=== PATIENT | female | born 1980 | race Caucasian/White ===

== ENCOUNTER 2023-04-05 01:05 | Inpatient (IN) | payer SELFPAY ==
--- NOTE | 2023-04-05 01:22 | ED ---
Chest Pain HPI - General Chief Complaint: Chest Pain Stated Complaint: End STEMI Time Seen by Provider: 04/05/23 01:11 Source: EMS Mode of arrival: EMS Limitations: no limitations - History of Present Illness Initial Comments: This patient is a 42-year-old woman with history of diabetes, currently smoking half pack of cigars per day, recent cold infection who went to [facility] this evening because she had been experiencing substernal chest pain since shortly after waking approximate 10 AM. The patient was found to have elevated troponin at 0.18. Patient's blood sugar is in the 330s there. She was transferred here to have further cardiology evaluation and treatment. The patient reported to have received aspirin, nitrates, heparin. MD Complaint: chest pain -: hour(s) (15) Onset: during rest Pain Location: substernal Pain Radiation: LUE Severity: moderate Quality: aching Consistency: constant Improves With: nothing Worsens With: nothing Anginal Symptoms: nausea Treatments Prior to Arrival: aspirin, nitroglycerin, oxygen, other - Related Data On Oral Contraceptives: No Home Medications Medication Instructions Recorded Confirmed Albuterol Inhaler [Ventolin Hfa 2 puff INHALATION RT-Q4H PRN 04/05/23 04/05/23 Inhaler] Levothyroxine Sodium [Synthroid] 75 mcg PO DAILY 04/05/23 04/05/23 glipiZIDE 5 mg PO DAILY 04/05/23 04/05/23 lisinopriL [Zestril] 10 mg PO DAILY 04/05/23 04/05/23 Previous Rx's Medication Instructions Recorded Aspirin 81 mg PO DAILY #30 tab 04/06/23 Atorvastatin [Lipitor] 40 mg PO HS #30 tab 04/06/23 Insulin Detemir (Levemir) [Levemir] 5 unit SQ HS #10 mgofpheneq 04/06/23 Isosorbide Mononitrate ER [Imdur] 30 mg PO DAILY #30 tab 04/06/23 Metoprolol Tartrate [Lopressor] 25 mg PO BID #60 tab 04/06/23 Nicotine 21Mg/24Hr Patch [Habitrol] 1 patch TRANSDERM DAILY #5 patch 04/06/23 Allergies Allergy/AdvReac Type Severity Reaction Status Date / Time No Known Allergies Allergy Verified 04/05/23 09:22 Review of Systems ROS Statement: Those systems with pertinent positive or pertinent negative responses have been documented in the HPI. ROS Other: All systems not noted in ROS Statement are negative. Constitutional: Denies: fever, chills Respiratory: Denies: cough, dyspnea Cardiovascular: Reports: chest pain. Denies: palpitations, edema, syncope Gastrointestinal: Reports: nausea. Denies: abdominal pain, vomiting, diarrhea Genitourinary: Denies: dysuria, hematuria Musculoskeletal: Denies: back pain Skin: Denies: rash Neurological: Denies: headache, weakness, numbness EKG Findings - EKG Results: EKG: interpreted by EMIR, sinus rhythm (Rate 76 bpm), normal axis, normal QRS, normal ST/T, no acute changes Past Medical History Past Medical History: Asthma, Diabetes Mellitus, Hypertension, Thyroid Disorder Past Surgical History: No Surgical Hx Reported Past Psychological History: No Psychological Hx Reported Smoking Status: Current every day smoker Past Alcohol Use History: Occasional Past Drug Use History: Marijuana General Exam Limitations: no limitations General appearance: alert, in no apparent distress Head exam: Present: atraumatic, normocephalic Eye exam: Present: normal appearance. Absent: scleral icterus, conjunctival injection ENT exam: Present: normal oropharynx Neck exam: Present: normal inspection Respiratory exam: Present: normal lung sounds bilaterally. Absent: respiratory distress, wheezes, rales, rhonchi, stridor Cardiovascular Exam: Present: regular rate, normal rhythm, normal heart sounds. Absent: systolic murmur, diastolic murmur, rubs, gallop GI/Abdominal exam: Present: soft. Absent: distended, tenderness, guarding, rebound, rigid, mass Extremities exam: Present: normal inspection, normal capillary refill. Absent: pedal edema, calf tenderness Back exam: Present: normal inspection. Absent: CVA tenderness (R), CVA tenderness (L) Neurological exam: Present: alert Skin exam: Present: warm, dry, intact, normal color. Absent: rash Course Vital Signs 04/05/23 04/05/23 04/05/23 01:06 02:00 03:00 Temperature 98.0 F Pulse Rate 79 73 65 Pulse Rate [ Photographic Double ] Respiratory 18 17 20 Rate Blood Pressure 143/88 138/74 143/68 Blood Pressure [Left Arm Sitting] O2 Sat by Pulse 96 97 96 Oximetry 04/05/23 04/05/23 04/05/23 04:00 05:00 06:00 Temperature Pulse Rate 60 73 65 Pulse Rate [ Photographic Double ] Respiratory 18 20 20 Rate Blood Pressure 138/90 131/72 138/80 Blood Pressure [Left Arm Sitting] O2 Sat by Pulse 96 96 94 L Oximetry 04/05/23 04/05/23 09:00 11:22 Temperature Pulse Rate 72 Pulse Rate [ 80 Photographic Double ] Respiratory 17 16 Rate Blood Pressure 140/78 Blood Pressure 134/74 [Left Arm Sitting] O2 Sat by Pulse 97 98 Oximetry Chest Pain MDM - MDM This patient is 42-year-old woman who is transferred here from outside hospital to have further cardiology treatment for N STEMI. The patient stable on arrival heparin continued the patient is discussed with admitting physician, admitting orders written. Was pt. sent in by a medical professional or institution (MARIAM Jackson, CROSSING TENDER, urgent care, hospital, or intermediate...) When possible be specific @ -Yesterday patient is transferred from outside hospital Did you speak to anyone other than the patient for history (EMS, parent, family, police, friend...)? What history was obtained from this source @ -[Case discussed with the transferring physician Did you review nursing and triage notes (agree or disagree)? Why? @ -[I reviewed and agree with nursing and triage notes] Were old charts reviewed (outside hosp., previous admission, EMS record, old EKG, old radiological studies, urgent care reports/EKG's, intermediate records)? Report findings @ -[The transfer charts charts were reviewed] Differential Diagnosis (chest pain, altered mental status, abdominal pain women, abdominal pain men, vaginal bleeding, weakness, fever, dyspnea, syncope, headache, dizziness, GI bleed, back pain, seizure, CVA, palpatations, mental health, musculoskeletal)? @ -[Differential Chest Pain: Stable Angina, Unstable Angina, STEMI, NSTEMI Aortic Dissection, Pneumothorax, Musculoskeletal, Esophageal Spasm GERD, Cholecystitis, Pancreatitis, Zoster, this is not meant to be an all-inclusive list. EKG interpreted by me (3pts min.). @ -[Reviewed outside ECG X-rays interpreted by me (1pt min.). @ -[None done] CT interpreted by me (1pt min.). @ -[None done] U/S interpreted by me (1pt. min.). @ -[None done] What testing was considered but not performed or refused? (CT, X-rays, U/S, labs)? Why? @ -[None] What meds were considered but not given or refused? Why? @ -[None] Did you discuss the management of the patient with other professionals (professionals i.e. , PA, CROSSING TENDER, lab, RT, psych nurse, social organization professor, tamale machine feeder, teacher, county records management officer, case folder)? Give summary @ -As above discussed with admitting physician Was smoking cessation discussed for >3mins.? @ -[No] Was critical care preformed (if so, how long)? @ -[No] Were there social determinants of health that impacted care today? How? (Homelessness, low income, unemployed, alcoholism, drug addiction, transportation, low edu. Level, literacy, decrease access to med. care, fpc, rehab)? @ -[No] Was there de-escalation of care discussed even if they declined (Discuss DNR or withdrawal of care, Hospice)? DNR status @ -[No] What co-morbidities impacted this encounter? (DM, HTN, Smoking, COPD, CAD, Cancer, CVA, ARF, Chemo, Hep., AIDS, mental health diagnosis, sleep apnea, morbid obesity)? @ -[None] Was patient admitted / discharged? Hospital course, mention meds given and route, prescriptions, significant lab abnormalities, going to OR and other pertinent info. @ -[As above Undiagnosed new problem with uncertain prognosis? @ -[No] Drug Therapy requiring intensive monitoring for toxicity (Heparin, Nitro, Insulin, Cardizem)? @ -[Heparin is continued Were any procedures done? @ -[No] Diagnosis/symptom? @ -[NSTEMI Acute, or Chronic, or Acute on Chronic? @ -[Acute Uncomplicated (without systemic symptoms) or Complicated (systemic symptoms)? @ -Uncomplicated Side effects of treatment? @ -[No] Exacerbation, Progression, or Severe Exacerbation? @ -[No] Poses a threat to life or bodily function? How? (Chest pain, [place], [place], pneumonia, PE, COPD, DKA, ARF, appy, cholecystitis, CVA, Diverticulitis, Homicidal, Suicidal, threat to staff... and all critical care pts) @ -[Yes Disposition Clinical Impression: Acute non-ST elevation myocardial infarction (NSTEMI), Uncontrolled diabetes mellitus Disposition: ADMITTED IP TO THIS HOSP Condition: Fair Is patient prescribed a controlled substance at d/c from ED?: No
[2023-04-05] MEDS ORDERED: NITROGLYCERIN SL TABS 0.4 MG TAB SUBLINGUAL PRN ×2 (01:30→09:17)
[2023-04-05] MEDS ORDERED: HEPARIN SOD,PORK IN 0.45% NACL 25,000 UNIT in 0.45% NACL 1 250ML.BAG IV SCH (01:30)
[2023-04-05] MEDS ORDERED: MORPHINE SULFATE 4 MG/ML SYRINGE IV STA (01:34)
[2023-04-05] MEDS: SODIUM CHLORIDE 0.9% 1,000 ML IV SCH ×3 (01:59→23:48)
[2023-04-05] MEDS ORDERED: NITROGLYCERIN OINT 1 INCH/GM PACKET TOPICAL SCH (06:00)
--- NOTE | 2023-04-05 07:14 | P.HPIM ---
History of Present Illness This is a pleasant 42 years old female with past medical history of hypertension, recently diagnosed covid Patient presented to the hospital with left-sided chest pain at [facility] and then transferred to this facility. Her pain is happened over one day about 7/10 on the left side nonradiating Described by the patient as squeezing but increased with deep breathing and feel like sharp. No relieving factors. She has some dyspnea and coughing with no phlegm. No change in urine or bowel habits. She has mild headache with no dizziness or weakness or numbness. Half-pack per day and she was counseled to quit and she agrees to the nicotine patch. No alcohol or illicit drugs. Review of Systems Review of systems CONSTITUTIONAL: No fever, no malaise, no fatigue. HEENT: No recent visual problems or hearing problems. Denied any sore throat. CARDIOVASCULAR: No orthopnea, PND, no palpitations, no syncope. PULMONARY: No shortness of breath, no cough, no hemoptysis. GASTROINTESTINAL: No diarrhea, no nausea, no vomiting, no abdominal pain. Normoactive bowel sounds. NEUROLOGICAL: No headaches, no weakness, no numbness. HEMATOLOGICAL: Denies any bleeding or petechiae. GENITOURINARY: Denies any burning micturition, frequency, or urgency. MUSCULOSKELETAL/RHEUMATOLOGICAL: Denies any joint pain, swelling, or any muscle pain. ENDOCRINE: Denies any polyuria or polydipsia. Past Medical History Past Medical History: Asthma, Diabetes Mellitus, Hypertension, Thyroid Disorder Past Surgical History: No Surgical Hx Reported Past Psychological History: No Psychological Hx Reported Smoking Status: Current every day smoker Past Alcohol Use History: Occasional Past Drug Use History: Marijuana Medications and Allergies Allergies Allergy/AdvReac Type Severity Reaction Status Date / Time No Known Allergies Allergy Verified 04/05/23 01:09 Physical Exam Vitals: Vital Signs Temp Pulse Resp BP Pulse Ox 04/05/23 06:00 65 20 138/80 94 L 04/05/23 05:00 73 20 131/72 96 04/05/23 04:00 60 18 138/90 96 04/05/23 03:00 65 20 143/68 96 04/05/23 02:00 73 17 138/74 97 04/05/23 01:06 98.0 F 79 18 143/88 96 Intake and Output 04/04/23 04/05/23 04/05/23 22:59 06:59 14:59 Other: Weight 108.862 kg -GENERAL: The patient is alert and oriented x3, not in any acute distress. Obese HEENT: Pupils are round and equally reacting to light. EOMI. No scleral icterus. No conjunctival pallor. Normocephalic, atraumatic. No pharyngeal erythema. No thyromegaly. CARDIOVASCULAR: S1 and S2 present. No murmurs, rubs, or gallops. PULMONARY: Chest is clear to auscultation, no wheezing , no crackles. ABDOMEN: Soft, nontender, nondistended, normoactive bowel sounds. No palpable organomegaly. MUSCULOSKELETAL: No joint swelling or deformity. EXTREMITIES: No cyanosis, clubbing, or pedal edema. NEUROLOGICAL: Gross neurological examination did not reveal any focal deficits. SKIN: No rashes. no petechiae. Results Labs: Abnormal Lab Results - Last 24 Hours (Table) 04/05/23 Range/Units 02:09 Troponin I 0.178 H* (0.000-0.034) ng/mL Assessment and Plan Assessment: Possible non-STEMI with chest pain and elevated troponin hyperglycemia and possible diabetes mellitus Nicotine dependence Obesity with BMI of 41.2 recently diagnosed covid with no pneumonia or hypoxia Plan: Continue with heparin drip continue with aspirin Check echocardiogram Cardiology consult Labs and medication were reviewed.. Continue same treatment. Continue with symptomatic treatment. Resume home medication. Monitor labs and vitals. DVT and GI prophylaxis. Further recommendations as per clinical course of the patient DVT prophylaxis: heparin GI Prophylaxis: Pepcid Prognosis is guarded
[2023-04-05] MEDS ORDERED: NICOTINE 21MG/24HR PATCH TRANSDERM SCH (09:00)
[2023-04-05] MEDS: FAMOTIDINE 20 MG/2 ML VIAL IV SCH ×2 (09:13→19:54)
[2023-04-05] MEDS ORDERED: ATORVASTATIN 80 MG TAB PO STA (09:17)
[2023-04-05] MEDS ORDERED: ASPIRIN 325 MG TAB PO STA (09:17)
[2023-04-05] MEDS ORDERED: ALPRAZolam 0.25 MG TAB PO PRN (09:17)
[2023-04-05] MEDS ORDERED: ALPRAZolam 0.5 MG TAB PO PRN (09:17)
[2023-04-05 09:18] LABS: HCT 40.2 % (34.0-46.0); HGB 13.2 gm/dL (11.4-16.0); MCH 29.2 pg (25.0-35.0); MCHC 32.8 g/dL (31.0-37.0); MCV 89.1 fL (80.0-100.0); Mean Platelet Volume 7.6; Platelet Count 255 k/uL (150-450); RBC 4.52 m/uL (3.80-5.40); RDW 13.3 % (11.5-15.5); WBC 7.3 k/uL (3.8-10.6)
[2023-04-05 09:29] LABS: Partial Thromboplastin Time 27.6 sec (22.0-30.0)
[2023-04-05 09:44] LABS: HCG,Qualitative Serum Not Detected
[2023-04-05] MEDS ORDERED: VERAPAMIL 2.5 MG/ML 2 ML AMP ONE (10:09)
[2023-04-05] MEDS ORDERED: LIDOCAINE 1% INJ 10MG/ML (20 ML MDV) ONE (10:09)
--- NOTE | 2023-04-05 10:22 | P.CRDCN ---
History of Present Illness Consult date: 04/05/23 History of present illness: History of Present Illness: The patient is a 42-year-old female with history of smoking, hypertension and diabetes who had Covid 19 infection about 2 weeks ago who presented with chest discomfort that woke her up from sleep and persisted. She was seen in [facility] and her troponin was mildly elevated. The patient continues to have some discomfort. She has mild dyspnea on exertion at baseline. She denies any PND, orthopnea or peripheral edema. She has no history of malignant arrhythmia. She was in sinus mechanism on presentation with no significant EKG changes. Patient has no recent cardiac workup or prior history of documented CAD. Medications: Lisinopril 10 mg daily, glipizide, levothyroxine Review of Systems: Respiratory: She has dyspnea on exertion and history of asthma. She has a history of chronic tobacco use GI: [No nausea or vomiting . No history of peptic ulcer disease. No recent GI bleed.] : [No hematuria or dysuria.] Nervous System: [No stroke or seizure.] Physical Examination: 42-year-old female, alert and oriented no apparent distress, overweight ,Blood pressure 140/70, Heart rate 70 Head: [Normocephalic.] Eyes: [Sclerae nonicteric.] Neck: [Good carotid upstroke, no bruit, no jugular venous distention.] Lungs: [Clear to auscultation.] Heart: [Regular rate and rhythm, S1-S2, no S3, no rub. No murmur.] Abdomen: [Soft nontender, positive bowel sounds no organomegaly.] Extremities: [No edema, intact distal pulses.] Labs: Hemoglobin 13.2, troponin 0.178 EKG: Sinus mechanism with no acute ST segment changes Impression: 1. Status post non-STEMI 2. History of hypertension 3. History of diabetes 4. Chronic tobacco use Plan: 1. Add beta michael 2. Obtain an echocardiogram with Doppler 3. I have recommended to proceed with coronary angiography, the risks and the complications were discussed with the patient who was in agreement and understanding 4. Smoking cessation 5. Depending on the results of her testing further recommendations will be made, thank you for this consult we will follow with you. Past Medical History Past Medical History: Asthma, Diabetes Mellitus, Hypertension, Thyroid Disorder Past Surgical History: No Surgical Hx Reported Past Psychological History: No Psychological Hx Reported Smoking Status: Current every day smoker Past Alcohol Use History: Occasional Past Drug Use History: Marijuana Medications and Allergies Home Medications Medication Instructions Recorded Confirmed Type Albuterol Inhaler [Ventolin Hfa 2 puff INHALATION RT-Q4H PRN 04/05/23 04/05/23 History Inhaler] Levothyroxine Sodium [Synthroid] 75 mcg PO DAILY 04/05/23 04/05/23 History glipiZIDE 5 mg PO DAILY 04/05/23 04/05/23 History lisinopriL [Zestril] 10 mg PO DAILY 04/05/23 04/05/23 History Allergies Allergy/AdvReac Type Severity Reaction Status Date / Time No Known Allergies Allergy Verified 04/05/23 09:22 Physical Exam Vitals: Vital Signs Temp Pulse Resp BP Pulse Ox 04/05/23 09:00 72 17 140/78 97 04/05/23 06:00 65 20 138/80 94 L 04/05/23 05:00 73 20 131/72 96 04/05/23 04:00 60 18 138/90 96 04/05/23 03:00 65 20 143/68 96 04/05/23 02:00 73 17 138/74 97 04/05/23 01:06 98.0 F 79 18 143/88 96 Intake and Output 04/04/23 04/05/23 04/05/23 22:59 06:59 14:59 Other: Weight 108.862 kg Results 04/05/23 08:48 Cardiac Enzymes 04/05/23 Range/Units 02:09 Troponin I 0.178 H* (0.000-0.034) ng/mL Coagulation 04/05/23 Range/Units 08:48 APTT 27.6 (22.0-30.0) sec CBC 04/05/23 Range/Units 08:48 WBC 7.3 (3.8-10.6) k/uL RBC 4.52 (3.80-5.40) m/uL Hgb 13.2 (11.4-16.0) gm/dL Hct 40.2 (34.0-46.0) % Plt Count 255 (150-450) k/uL Current Medications Generic Name Dose Route Start Last Admin Trade Name Freq PRN Reason Stop Dose Admin Alprazolam 0.25 mg 04/05/23 09:17 Alprazolam 0.25 Mg Tab PO Q6HR PRN Mild Anxiety Alprazolam 0.5 mg 04/05/23 09:17 Alprazolam 0.5 Mg Tab PO Q6HR PRN Moderate Anxiety Aspirin 81 mg 04/06/23 09:00 Aspirin 81 Mg PO DAILY [facility] Atorvastatin Calcium 40 mg 04/05/23 21:00 Atorvastatin 40 Mg Tab PO HS VERONIKA Famotidine 20 mg 04/05/23 09:00 04/05/23 09:13 Famotidine 20 Mg/2 Ml Vial IV 20 mg Q12HR VERONIKA Administration Sodium Chloride 1,000 mls @ 100 mls/hr 04/05/23 01:30 04/05/23 01:59 Saline 0.9% IV 100 mls/hr .Q10H VERONIKA Administration Heparin Sodium/Sodium Chloride 250 mls @ 10 mls/hr 04/05/23 01:30 04/05/23 02:00 25,000 unit/ Sodium Chloride IV 9.1859 units/kg/hr .Q24H VERONIKA 10 mls/hr Administration Protocol 9.1859 UNITS/KG/HR Heparin Sodium (Porcine) 10, 1,001 mls @ 999 mls/hr 04/06/23 07:00 000 unit/ Sodium Chloride IRRIGATION 04/06/23 23:00 ONCE PRN INTRA-OP Heparin Sodium (Porcine) 2,500 250.5 mls @ 250 mls/hr 04/06/23 07:00 unit/ Sodium Chloride IRRIGATION 04/06/23 23:00 ONCE PRN INTRA-OP Metoprolol Tartrate 25 mg 04/05/23 09:30 Metoprolol Tartrate 25 Mg Tab PO BID [facility] Nicotine 1 patch 04/05/23 09:00 04/05/23 09:12 Nicotine 21mg/24hr Patch TRANSDERM 1 patch DAILY [facility] Administration Nitroglycerin 0.5 inch 04/05/23 06:00 04/05/23 06:58 Nitroglycerin Oint 1 Inch/Gm Packet TOPICAL 0.5 inch Q6HR [facility] Administration Nitroglycerin 0.4 mg 04/05/23 01:30 Nitroglycerin Sl Tabs 0.4 Mg Tab SUBLINGUAL Q5M PRN Chest Pain Nitroglycerin 0.4 mg 04/05/23 09:17 Nitroglycerin Sl Tabs 0.4 Mg Tab SUBLINGUAL Q5M PRN Chest Pain Intake and Output 04/04/23 04/05/23 04/05/23 22:59 06:59 14:59 Other: Weight 108.862 kg 04/05/23 08:48
[2023-04-05] MEDS ORDERED: fentaNYL (PF) 50 MCG/ML 2 ML AMP ONE (10:27)
[2023-04-05] MEDS ORDERED: IV FLUID CONTINUATION 1,000 ML IV ONE (10:30)
[2023-04-05 10:57] LABS: ALT 40 U/L (4-34); AST 32 U/L (14-36); African American GFR (CKD) >90 (>60 ml/min/1.73 sqM); Albumin 3.2 g/dL (3.5-5.0); Alkaline Phosphatase 79 U/L (38-126); Anion Gap 9 mmol/L; Blood Urea Nitrogen 12 mg/dL (7-17); Calcium 8.2 mg/dL (8.4-10.2); Carbon Dioxide 19 mmol/L (22-30); Chloride 105 mmol/L (98-107); Glucose 227 mg/dL (74-99); Magnesium 1.7 mg/dL (1.6-2.3); Non-African American GFR(CKD) >90 (>60 ml/min/1.73 sqM); Potassium 4.1 mmol/L (3.5-5.1); Sodium 133 mmol/L (137-145); Total Bilirubin 0.4 mg/dL (0.2-1.3); Total Protein 6.2 g/dL (6.3-8.2)
[2023-04-05] MEDS ORDERED: fentaNYL (PF) 50 MCG/1 ML VIAL IVP ONE (10:58)
[2023-04-05] MEDS ORDERED: MIDAZOLAM 2 MG/2 ML VIAL IVP ONE (11:02)
[2023-04-05] MEDS ORDERED: VERAPAMIL 2.5 MG/ML 2 ML AMP INTRAARTER ONE (11:02)
[2023-04-05] MEDS ORDERED: HEPARIN SODIUM 1,000 UN/ML (10ML VL) ONE (11:03)
[2023-04-05] MEDS ORDERED: LIDOCAINE 1% INJ 10MG/ML (30 ML VIAL-PF) SQ ONE (11:04)
[2023-04-05] MEDS ORDERED: HEPARIN SODIUM 1,000 UN/ML (10ML VL) IV ONE (11:04)
[2023-04-05] MEDS ORDERED: IOPAMIDOL-300 100ML BTL INJ ONE (11:09)
[2023-04-05] MEDS ORDERED: RX INFO: IV CONTRAST WAS GIVEN 1 EACH MISC MISCELLANE PRN (11:22)
[2023-04-05] MEDS ORDERED: SODIUM CHLORIDE 0.9% 1,000 ML IV SCH (11:30)
--- NOTE | 2023-04-05 11:37 | P.CARDCATH ---
Date of Procedure: 04/05/23 Description of Procedure: Cardiac Catheterization: The patient is a 42-year-old female with a known history of diabetes, hypertension and chronic tobacco use who presented with symptoms of chest discomfort and mild troponin elevation. Recommendations were made regarding cardiac catheterization, the risks and the complications were discussed with the patient who is in full understanding and agreement. Procedure Description: Patient was brought to label stitcher in fasting semi-sedated state after receiving F entanyl and Benadryl achieiving moderate conscious sedated state. Using Xylocaine Anesthesia and modified Seldinger technique, a 6-Faroese sheath was introduced in the right radial artery . Subsequently, selective coronary angiography was performed using a 5-Faroese 3.5 bend Neena catheter. Multiple views of the coronary artery including hemiaxial views were obtained. The 5-Faroese pigtail catheter was used to cross the aortic valve and LVEDP was calculated. Following that, catheter and sheath were removed. Hemostasis was obtained with deployment of vascular band . There was no immediate complication. Patient was returned to room in stable condition. Of note, the patient received a total of 5000 units of intravenous heparin as well as intra-arterial verapamil. Findings: Left main: This is a short vessel that bifurcates immediately into LAD and left circumflex, left main has no obstructive disease LAD: This is a large vessel reaching to the apex it has a 20% plaque proximally, there is a vessel has no high-grade stenosis Left circumflex: this is a large nondominant vessel giving rise to 3 obtuse marginal branch the left circumflex and its branches have no obstructive diseaseThis is a large dominant vessel bifurcating to PDA and PLV. At the takeoff of the acute marginal the right coronary artery has 20% plaque with no high-grade stenosis RCA: this is a large nondominant vessel giving rise to 3 obtuse marginal branch the left circumflex and its branches have no obstructive disease Left Ventriculogram: Not performed Hemodynamics: There was no gradient across the aortic valve LVEDP 15-20 mmHg Conclusion: 1. Mild disease in the LAD and RCA 2. right dominance Recommendations: I see no evidence of high-grade stenosis, the patient will continue on present therapy. Aggressive coronary risks modification will be continued. The findings and the recommendations were discussed with the patient and the family and they were in full understanding and agreement. Duration of sedation is 12 minutes.
[2023-04-05] MEDS: METOPROLOL TARTRATE 25 MG TAB PO SCH ×2 (14:01→19:53)
[2023-04-05 15:15] LABS: Chol/HDL Ratio 7.03 Ratio; LDL Cholesterol,Calculated 142.4 mg/dL (0.0-131.0)
[2023-04-05] MEDS: ISOSORBIDE MONONITRATE ER 30 MG TAB.ER.24H PO SCH (16:12)
[2023-04-05 17:01] LABS: Glucose,Whole Blood 251 mg/dL (70-110)
[2023-04-05] MEDS ORDERED: ONDANSETRON 4 MG/2 ML VIAL IVP PRN (19:41)
[2023-04-05] MEDS: ACETAMINOPHEN TAB 325 MG TAB PO PRN (19:52)
[2023-04-05] MEDS: lisinopriL 5 MG TAB PO SCH (19:53)
[2023-04-05 20:05] LABS: Glucose,Whole Blood 245 mg/dL (70-110)
[2023-04-05] MEDS ORDERED: ATORVASTATIN 40 MG TAB PO SCH (21:00)
[2023-04-05] MEDS ORDERED: DEXTROSE 50% SYRINGE 50 ML IVP PRN ×2 (23:11)
[2023-04-05] MEDS ORDERED: INSULIN DETEMIR (LEVEMIR) 100 UNIT/ML SYR SQ SCH (23:15)
[2023-04-06] MEDS: ACETAMINOPHEN TAB 325 MG TAB PO PRN ×2 (04:04→10:51)
[2023-04-06 05:12] VITALS: PULSE 59
[2023-04-06 06:06] LABS: Glucose,Whole Blood 193 mg/dL (70-110)
[2023-04-06] MEDS ORDERED: HEPARIN SODIUM,PORCINE 10,000 UNIT in SODIUM CHLORIDE 0.9% 1,000 ML IRRIGATION PRN (07:00)
[2023-04-06] MEDS ORDERED: HEPARIN SODIUM,PORCINE (1 ML) 2,500 UNIT in SODIUM CHLORIDE 0.9% 250 ML IRRIGATION PRN (07:00)
[2023-04-06] MEDS ORDERED: INSULIN ASPART (NovoLOG) 100 UNIT/ML VIAL SQ SCH (07:30)
--- NOTE | 2023-04-06 08:05 | CA ---
Transthoracic Echo Report Name: Racquel Adamson Age: 42 Gender: F : 1980 Exam Date: 04/05/2023 15:04 Exam Location: [place] [facility] Ht (in): 64 Wt (lb): 240 Ordering Physician: Mir Stern MD Attending/Referring Phys: [id number], Leena Gantry Rigger Eileen Motley RDCS Procedure CPT: Indications: Rule out heart disease Cardiac Hx: Technical Quality: Fair Contrast 1: Total Dose (mL): Contrast 2: Total Dose (mL): MEASUREMENTS (Male / Female) Normal Values 2D ECHO LV Diastolic Diameter PLAX 4.1 cm 4.2 - 5.9 / 3.9 - 5.3 cm LV Systolic Diameter PLAX 2.8 cm IVS Diastolic Thickness 1.6 cm 0.6 - 1.0 / 0.6 - 0.9 cm LVPW Diastolic Thickness 1.3 cm 0.6 - 1.0 / 0.6 - 0.9 cm LV Relative Wall Thickness 0.7 RV Internal Dim ED PLAX 3.5 cm LA Volume 33.2 cm??? 18 - 58 / 22 - 52 cm??? LA Volume Index 14.6 cm???/m??? 16 - 28 cm???/m??? M-MODE Aortic Root Diameter MM 3.4 cm LA Systolic Diameter MM 4.0 cm LA Ao Ratio MM 1.2 AV Cusp Separation MM 1.7 cm DOPPLER AV Peak Velocity 141.1 cm/s AV Peak Gradient 8.0 mmHg AV Mean Velocity 85.4 cm/s AV Mean Gradient 3.5 mmHg AV Velocity Time Integral 27.6 cm LVOT Peak Velocity 109.7 cm/s LVOT Peak Gradient 4.8 mmHg LVOT Velocity Time Integral 22.8 cm MV Area PHT 2.8 cm??? Mitral E Point Velocity 90.2 cm/s Mitral A Point Velocity 99.1 cm/s Mitral E to A Ratio 0.9 MV Deceleration Time 274.4 ms MV E' Velocity 5.1 cm/s Mitral E to MV E' Ratio 17.6 FINDINGS Left Ventricle Moderately increased left ventricular wall thickness. Left ventricular cavity size normal. Normal left ventricular systolic function with no obvious regional wall motion abnormalities. Left ventricular ejection fraction is estimated at 55-60 %. Right Ventricle Normal right ventricular size and function. Right ventricular systolic pressure within normal limits. Right Atrium Normal right atrial size. Left Atrium Normal left atrial size. Mitral Valve Structurally normal mitral valve. No mitral stenosis, regurgitation or prolapse. Aortic Valve Aortic valve not well visualized. No aortic valve stenosis or regurgitation. Tricuspid Valve Mild tricuspid regurgitation. Pulmonic Valve Structurally normal pulmonic valve. Pericardium No pericardial effusion. Aorta Normal size aortic root and proximal ascending aorta. CONCLUSIONS Moderately increased left ventricular wall thickness Left ventricular ejection fraction 55-60% No mitral regurgitation Mild tricuspid regurgitation No pericardial effusion Previewed by: Dr. David Bowman DO (Electronically Signed) Final Date: 06 April 2023 08:04
[2023-04-06] MEDS: ISOSORBIDE MONONITRATE ER 30 MG TAB.ER.24H PO SCH (08:15)
[2023-04-06] MEDS: FAMOTIDINE 20 MG/2 ML VIAL IV SCH (08:15)
[2023-04-06] MEDS: lisinopriL 5 MG TAB PO SCH (08:15)
[2023-04-06] MEDS: METOPROLOL TARTRATE 25 MG TAB PO SCH (08:15)
[2023-04-06] MEDS ORDERED: ASPIRIN 325 MG TAB PO SCH (09:00)
[2023-04-06] MEDS ORDERED: ASPIRIN 81 MG PO SCH (09:00)
[2023-04-06 11:27] VITALS: BP 146/79; RESP 16; TEMP 97.9
--- NOTE | 2023-04-06 12:37 | P.PN ---
Subjective HISTORY OF PRESENT ILLNESS: Patient is status post cardiac catheterization yesterday revealing mild disease in the LAD and RCA. Medical management was recommended. Patient examined this morning at the bedside. Patient denies chest pain or pressure. She denies any shortness of breath. Vital signs are stable. Echocardiogram completed revealing preserved LV systolic function with EF 55-60% PHYSICAL EXAM: VITAL SIGNS: Reviewed. GENERAL: Well-developed in no acute distress. NECK: Supple. No JVD or thyromegaly LUNGS: Respirations even and unlabored. Lungs essentially clear to auscultation bilaterally. HEART: Regular rate and rhythm. S1 and S2 heard. EXTREMITIES: Normal range of motion. No clubbing or cyanosis. Peripheral pulses intact. No lower extremity edema ASSESSMENT: Non-STEMI, status post cardiac catheterization revealing mild disease in LAD and RCA Hypertension Diabetes, uncontrolled Hyperlipidemia, LDL 142 Nicotine dependence PLAN: Continue current cardiac medications Patient is stable for discharge home today from a cardiac standpoint She is to follow up in the office with Dr. Britt Nurse practitioner note has been reviewed by physician. Signing provider agrees with the documented findings, assessment, and plan of care. Objective - Vital Signs Vital signs: Vital Signs Temp 97.9 F 04/06/23 08:00 Pulse 59 L 04/06/23 04:00 Resp 16 04/06/23 08:00 BP 146/79 04/06/23 08:00 Pulse Ox 97 04/06/23 08:00 FiO2 Intake & Output 04/05/23 04/06/23 04/06/23 18:59 06:59 18:59 Intake Total 1200 Balance 1200 Weight 108.862 kg Intake: IV 600 Oral 600 Other: Voiding Method Toilet Toilet Toilet # Voids 1 1 1 - Labs CBC & Chem 7: 04/05/23 08:48 04/05/23 08:48 Labs: Abnormal Lab Results - Last 24 Hours (Table) 04/05/23 04/05/23 04/05/23 Range/Units 08:48 08:48 15:06 POC Glucose (mg/dL) (70-110) mg/dL Hemoglobin A1c 11.7 H (<=6.0) % Troponin I 0.040 H* (0.000-0.034) ng/mL Triglycerides 223.00 H (0.00-149.00) mg/dL Cholesterol 218.00 H (0.00-200.00) mg/dL LDL Cholesterol, Calc 142.4 H (0.0-131.0) mg/dL VLDL Cholesterol, Calc 44.60 H (5.00-40.00) mg/dL HDL Cholesterol 31.00 L (40.00-60.00) mg/dL 04/05/23 04/05/23 04/06/23 Range/Units 16:59 20:03 06:04 POC Glucose (mg/dL) 251 H 245 H 193 H (70-110) mg/dL Hemoglobin A1c (<=6.0) % Troponin I (0.000-0.034) ng/mL Triglycerides (0.00-149.00) mg/dL Cholesterol (0.00-200.00) mg/dL LDL Cholesterol, Calc (0.0-131.0) mg/dL VLDL Cholesterol, Calc (5.00-40.00) mg/dL HDL Cholesterol (40.00-60.00) mg/dL
[2023-04-06 15:08] LABS: Chol/HDL Ratio 7.25 Ratio
--- NOTE | 2023-04-06 21:05 | P.DS ---
Providers Date of admission: 04/05/23 01:32 Attending physician: Filipe Banuelos Consults: 04/05/23 01:30 Consult Physician Routine Consulting Provider: Florentino Britt Consult Reason/Comments: NSTEMI Do you want consulting provider notified?: Yes Primary care physician: Carlos Proctor [facility] Course: Diagnoses: Possible non-STEMI with chest pain and elevated troponin hyperglycemia and possible diabetes mellitus Nicotine dependence Obesity with BMI of 41.2 recently diagnosed covid with no pneumonia or hypoxia Hospital course: This is a pleasant 42 years old female with past medical history of hyper tension, recently diagnosed covid Patient presented to the hospital with left-sided chest pain at [facility] and then transferred to this facility. Rn Med Surg evaluated the patient. At cardiac cath with no significant carotid artery stenosis. Patient's symptoms improved, she tolerates diet well. Her chest pain resolved. D-dimer is negative at 0.43. Her hemoglobin A1c is 11.7 which is elevated, patient informed, she takes glipizide pill only. Insulin 5 units added and the glucometer provided and patient was referred to sack sewer Dr. de la garza to follow-up in 1-2 weeks after discharge and she agrees Patient denies any new complaints. Patient's was to go home today. Patient was cleared for discharge by select banker. Problems and management plan were discussed with the patient and he verbalized understanding and acceptance Patient was found stable and can be discharged home in guarded prognosis however he needs follow-up as an outpatient. Patient was instructed to follow up with PCP Dr. Proctor within one week and patient agrees patient was instructed to follow up with sack sewer as above and with select banker Dr. Britt in 1-2 weeks and she agrees. Patient was started on baby aspirin and risk of bleeding including but not limited to the brain bleed are explained for her and she verbalized understanding and acceptance. We think benefits more the risks Physical exam Gen: patient is a AAOx3, no distress CVS: S1-S2, RRR, no murmur Lungs: B/L CTA, no wheezing Abdomen: soft, no distention, no tenderness, positive bowel sounds Extremity: no leg edema or induration Time spent more than 35 minutes Patient Condition at Discharge: Fair Plan - Discharge Summary Discharge Rx Participant: No New Discharge Prescriptions: New Nicotine 21Mg/24Hr Patch [Habitrol] 1 patch TRANSDERM DAILY #5 patch Isosorbide Mononitrate ER [Imdur] 30 mg PO DAILY #30 tab Insulin Detemir (Levemir) [Levemir] 5 unit SQ HS #10 mgofpheneq Aspirin 81 mg PO DAILY #30 tab Atorvastatin [Lipitor] 40 mg PO HS #30 tab Metoprolol Tartrate [Lopressor] 25 mg PO BID #60 tab Continue lisinopriL [Zestril] 10 mg PO DAILY glipiZIDE 5 mg PO DAILY Levothyroxine Sodium [Synthroid] 75 mcg PO DAILY Albuterol Inhaler [Ventolin Hfa Inhaler] 2 puff INHALATION RT-Q4H PRN PRN Reason: Shortness Of Breath Or Wheezing Discharge Medication List Albuterol Inhaler [Ventolin Hfa Inhaler] 2 puff INHALATION RT-Q4H PRN 04/05/23 [History] Levothyroxine Sodium [Synthroid] 75 mcg PO DAILY 04/05/23 [History] glipiZIDE 5 mg PO DAILY 04/05/23 [History] lisinopriL [Zestril] 10 mg PO DAILY 04/05/23 [History] Aspirin 81 mg PO DAILY #30 tab 04/06/23 [Rx] Atorvastatin [Lipitor] 40 mg PO HS #30 tab 04/06/23 [Rx] Insulin Detemir (Levemir) [Levemir] 5 unit SQ HS #10 mgofpheneq 04/06/23 [Rx] Isosorbide Mononitrate ER [Imdur] 30 mg PO DAILY #30 tab 04/06/23 [Rx] Metoprolol Tartrate [Lopressor] 25 mg PO BID #60 tab 04/06/23 [Rx] Nicotine 21Mg/24Hr Patch [Habitrol] 1 patch TRANSDERM DAILY #5 patch 04/06/23 [Rx] Follow up Appointment(s)/Referral(s): Carlos Proctor MD [Primary Care Provider] - 1-2 days Florentino Britt MD [STAFF PHYSICIAN] - 2 Weeks (office will call with an appt.) David De La Garza MD [REFERRING] - 2 Weeks ([facility] for uncontrolled DM) Patient Instructions/Handouts: *Surgery [facility] - After Heart Catheterization - Machine Or Machinery Mechanic Instructions Activity/Diet/Wound Care/Special Instructions: heart healthy diet , low carbohydrate diet 1600 kcal per day activity is restricted till you see your doctor we recommend to check your glucose 4 times a day before each meal and at bed time , keep the results in a log book and bring it to your doctor upon your appointment date if your glucose is less than 70 or more than 400 then call 911 and come to emergency room Discharge Disposition: HOME SELF-CARE
== END 2023-04-06 11:52 | disposition home or self-care (01) | DRG 281 ==
LOC: EC 01:05 → 3SCARD 01:32
PROVIDERS: ADMIT Hospitalist; ATTEND Hospitalist
PROC: B2111ZZ Fluoroscopy of Multiple Coronary Arteries using Low Osmolar Contrast (ICD-10-PCS; principal; 2023-04-05 15:00)
PROC: 4A023N7 Measurement of Cardiac Sampling and Pressure, Left Heart, Percutaneous Approach (ICD-10-PCS; principal; 2023-04-05 15:00)
DX: I21.4 Non-ST elevation (NSTEMI) myocardial infarction (principal); Z68.41 Body mass index [BMI] 40.0-44.9, adult; E11.65 Type 2 diabetes mellitus with hyperglycemia; E66.9 Obesity, unspecified; E78.5 Hyperlipidemia, unspecified; I10 Essential (primary) hypertension; J45.909 Unspecified asthma, uncomplicated; F17.210 Nicotine dependence, cigarettes, uncomplicated; Z71.6 Tobacco abuse counseling; Z79.84 Long term (current) use of oral hypoglycemic drugs; Z79.890 Hormone replacement therapy; Z79.899 Other long term (current) drug therapy; Z86.16 Personal history of COVID-19
CPT/HCPCS: 80053; 80061; 83036; 83735; 84484; 84703; 85027; 85379; 85730; 93005; 93306; 93458; 96365; 96375; 99285